=== PATIENT | male | born 1980 | race Caucasian/White ===

== ENCOUNTER 2018-04-10 21:09 | Emergency (ER) | payer BC ==
[~2018-04-10] VITALS: Ht 175.3 cm; Wt 105.9 kg
[2018-04-10 21:15] VITALS: Ht 175.3 cm; Wt 105.9 kg
[2018-04-10] MEDS ORDERED: VOLTAREN75 MG (21:16)
[2018-04-10] MEDS ORDERED: CLONAZEPAM2 MG/TAB (21:17)
[2018-04-10] MEDS ORDERED: REQUIP XL12 MG PO (21:17)
[2018-04-10] MEDS ORDERED: VITAMIN D250000 UNIT (21:18)
[2018-04-10] MEDS ORDERED: BACTRIM DS TABL1 TAB PO (23:40)
[2018-04-10] MEDS ORDERED: CLEOCIN HCL300 MG PO (23:40)
[2018-04-11 00:25] VITALS: BP 132/86
== END 2018-04-11 00:26 | disposition home or self-care (01) ==
LOC: D.ER 21:09
DX: L03.113 Cellulitis of right upper limb (principal); S60.561A Insect bite (nonvenomous) of right hand, initial encounter; W57.XXXA Bitten or stung by nonvenomous insect and other nonvenomous arthropods, initial encounter; Y93.89 Activity, other specified; Y92.019 Unspecified place in single-family (private) house as the place of occurrence of the external cause

== ENCOUNTER → 2019-01-05 13:48 | Outpatient (CLI) | payer BC ==
[2018-04-10 21:15] VITALS: BMI 34.5
[~2019-01-05 13:48] MED LIST: BACTRIM DS TABL1 TAB PO; CLEOCIN HCL300 MG PO; CLONAZEPAM2 MG/TAB; REQUIP XL12 MG PO; VITAMIN D250000 UNIT; VOLTAREN75 MG
== END | disposition home or self-care (01) ==
LOC: D.RAD 13:48
PROVIDERS: ATTEND Orthopaedic Surgery
DX: M25.851 Other specified joint disorders, right hip (principal)

== ENCOUNTER → 2019-04-07 13:06 | Outpatient (CLI) | payer BC ==
[2018-04-10 21:15] VITALS: BMI 34.5
== END | disposition home or self-care (01) ==
LOC: D.MRI 04-05 14:30
PROVIDERS: ATTEND Orthopaedic Surgery
DX: M25.551 Pain in right hip (principal)

== ENCOUNTER 2019-04-15 19:07 | Emergency (ER) | payer BC ==
[~2019-04-15] VITALS: Ht 175.3 cm; Wt 120.5 kg
[2019-04-15 19:10] VITALS: Ht 175.3 cm; Wt 120.5 kg
[2019-04-15 19:44] LABS: BASOPHILS 0.1 % (0-2); EOSINOPHILS 5.1 % (0-7); HEMATOCRIT 41.3 % (42.0-54.0); IMMATURE GRANULOCYTES 0.4 % (0-5); LYMPHOCYTES 21.1 % (15-50); MCH 31.6 pg (26.0-34.0); MCHC 36.3 g/dL (31.0-37.0); MCV 87.1 fL (80.0-100.0); MEAN PLATELET VOLUME 9.8 fL (7.4-10.4); MONOCYTES 9.9 % (2-11); NEUTROPHILS 63.4 % (40-80); RBC 4.74 10x6/uL (4.20-6.10); RDW 12.8 % (11.5-14.5); WBC 8.2 10x3/uL (4.8-10.8)
[2019-04-15 19:46] LABS: APPEARANCE CLEAR (CLEAR); BILIRUBIN NEGATIVE (NEGATIVE); COLOR YELLOW (YELLOW); GLUCOSE NEGATIVE (NEGATIVE); KETONE NEGATIVE (NEGATIVE); NITRITE NEGATIVE (NEGATIVE); PROTEIN TRACE mg/dL (NEGATIVE); UROBILINOGEN NORMAL (NORMAL)
[2019-04-15 19:47] LABS: BACTERIA FEW /hpf (NONE SEEN); EPITHELIAL CELLS 0-5 /hpf (0-5); RED CELLS - URINE 0-5 /hpf (0-5); WHITE CELLS - URINE OCC /hpf (0-5)
[2019-04-15 19:48] LABS: PLATELET COUNT 175 10x3/uL (130-400)
[2019-04-15] MEDS ORDERED: TYLENOL W/CODEI1 TAB PO (20:03)
[2019-04-15] MEDS ORDERED: FLOMAX0.4 MG PO (20:03)
[2019-04-15 20:04] LABS: ALBUMIN 3.4 g/dL (3.4-5.0); ANION GAP 14.6 mmol/L (8-16); BILIRUBIN - TOTAL 0.5 mg/dL (0.2-1.3); CALCIUM 8.9 mg/dL (8.5-10.1); CARBON DIOXIDE 24.3 mmol/L (21.0-32.0); CREATININE - SERUM 1.3 mg/dL (0.6-1.3); POTASSIUM - SERUM 3.9 mmol/L (3.5-5.1); PROTEIN - SERUM 6.9 g/dL (6.4-8.2)
[2019-04-15 21:00] VITALS: BP 128/86
== END 2019-04-15 20:57 | disposition home or self-care (01) ==
LOC: D.ER 19:07
PROVIDERS: Family Medicine
DX: N20.1 Calculus of ureter (principal)

== ENCOUNTER → 2019-05-24 13:43 | Outpatient (CLI) | payer BC ==
[2019-04-15 19:10] VITALS: BMI 39.2
[~2019-05-24 13:43] MED LIST changes: +FLOMAX0.4 MG PO; +TYLENOL W/CODEI1 TAB PO
== END | disposition home or self-care (01) ==
LOC: D.CT 13:43
PROVIDERS: ATTEND Family Medicine
DX: R93.89 Abnormal findings on diagnostic imaging of other specified body structures (principal)

== ENCOUNTER → 2019-06-10 08:09 | Outpatient (CLI) | payer BC ==
[2019-04-15 19:10] VITALS: BMI 39.2
--- NOTE | ~2019-06-10 | HEMODYNAMI ---
PATIENT:JUNE TAVARES MEDICAL RECORD: [id number] : 76 LOCATION:[facility] ADMISSION DATE: 06/10/19 Generatedon:06/10/20199:05 Patient name: JUNE TAVARES Patient #: [id number] SSN: : 1980 Date of study: 06/10/2019 Page: Of Hemodynamic Procedure Report Patient Data Patient Demographics Procedure consent was obtained First Name: JUNE Gender: Male Last Name: CHAITANYA : 1980 [facility] Initial: MOSES Age: 39 year(s) Patient #: [id number] Race: Unknown Additional ID: [id number] Contact details Address: [address] [place] [address] State: [place] City: [place] Zip code: [address] Past Medical History Allergies: No known allergies Admission Admission Data Admission Date: 06/10/2019 Admission Time: 8:09 Procedure Procedure Types Cath Procedure Peripheral Cath Diagnostic Procedure Miscellaneous Aspiration/Injection (Joint) Procedure Description Procedure Date Procedure Date: 06/10/2019 Procedure Start Time: 8:51 Procedure Staff Name Function James Vazquez MD Performing Physician Yefri Marroquin RT Monitor Lizzeth Espitia RN Nurse Procedure Data Cath Procedure Fluoroscopy Diagnostic fluoroscopy Total fluoroscopy Time: 1 time: 1 min min Diagnostic fluoroscopy Total fluoroscopy dose: 13 dose: 13 mGy mGy Hemodynamics Rest Pre Cath Intra NCS Post Cath Procedure Log Time Note 8:49:21 Yefri Marroquin RT (R) (CV) sent for patient. Start room use. 8:49:34 Time tracking: Regular hours (M-F 7:00 - 5:00) 8:49:45 Patient received from Outpatients to IR Alert and oriented. Tansferred to table in Supine position. 8:49:47 Signed procedure consent form obtained from patient. 8:49:49 Correct patient and procedure confirmed by team. 8:49:50 Full Disclosure recording started 8:49:51 8:49:51 Pre-procedure instructions explained to patient. 8:49:52 Pre-op teaching completed and patient verbalized understanding. 8:50:12 Patient allergic to No known allergies 8:50:14 Is patient on blood thinner?No 8:50:22 Right Hip was prepped with betadine and draped in sterile fashion. 8:51:27 Physician arrived 8:51:29 --------ALL STOP TIME OUT------ 8:51:30 Final Timeout: patient, procedure, and site verified with staff and physician. All members of the team are in agreement. 8:51:33 Right groin site verified by team. 8:51:39 Sedation plan: Local Anesthetic Medication:Lidocaine 8:51:49 Procedure started. 8:51:52 Local anesthetic to right groin with Lidocaine 1% by James Vazquez MD.INITIAL ACCESS ONLY 8:52:24 SAFE-T PLUS MYELOGRAM TRAY opened to sterile field. 9:02:27 Procedure ended.(Physican Out) 9:02:44 Fluoroscopy time 01.00 minutes. 9:02:46 Fluoroscopy dose: 13 mGy 9:02:46 Flurop Dose total: 13 9:05:23 BANDAIDE APPLIED SITE STABLE PT SENT HOME Device Usage Item Name Manufacture Quantity Catalog Hospital Part Current Minimal Lot# / Number Charge Number Stock Stock Serial# Code SAFE-T Care[employer]usion 1 [id number] PLUS MYELOGRAM TRAY Signature Audit [place] Stage Time Signature Unsigned Intra-Procedure 06/10/2019 Yefri 9:05:43 AM Cara RT (R) (CV) [facility] [address] [place] [address]
[~2019-06-10 08:09] MED LIST changes: +CARBIDOPA-LEVO1 EAC2 PO; +COLACE100 MG PO; +CYMBALTA60 MG PO; +HYDROCODON-ACE1 EA10 PO; +KLONOPIN1 MG PO; +LIORESAL 10 MG10 MG PO; +MULTI-DAY VITAM1 TAB PO; +ROPINIROLE HCL1 MG PO; +TOPROL XL50 MG PO; +VITAMIN C WIT1000 MG PO
[2019-06-23 08:45] VITALS: BMI 35.0
== END | disposition home or self-care (01) ==
LOC: D.RAD 08:09
PROVIDERS: ATTEND Nurse Practitioner Family
DX: M25.851 Other specified joint disorders, right hip (principal)

== ENCOUNTER → 2019-06-15 17:15 | Outpatient (CLI) | payer BC ==
[2019-04-15 19:10] VITALS: BMI 39.2
[2019-06-16 13:10] LABS: ANA REFLEX - DIRECT Negative (Negative)
[2019-06-17 11:10] LABS: ANGIOTENSIN CONVERTING ENZYME 51 U/L (14-82)
[2019-06-17 15:10] LABS: ANCA - ANTIMYELOPEROXIDASE <9.0 U/mL (0.0-9.0); ANCA - ANTIPROTEINASE 3 <3.5 U/mL (0.0-3.5); ANCA - ATYPICAL <1:20 titer (Neg:<1:20); ANCA - CYTOPLASMIC <1:20 titer (Neg:<1:20); ANCA - PERINUCLEAR <1:20 titer (Neg:<1:20)
[2019-06-19 17:08] LABS: FUNGAL - ASP FLAVUS Negative (Neg:<1:1); FUNGAL - ASP NIGER Negative (Neg:<1:1); FUNGAL - ASPER FUMIGATUS Negative (Neg:<1:1)
[2019-06-23 08:45] VITALS: BMI 35.0
== END | disposition home or self-care (01) ==
LOC: D.LABREF 17:15
PROVIDERS: ATTEND Internal Medicine Pulmonary Disease
DX: R91.8 Other nonspecific abnormal finding of lung field (principal)

== ENCOUNTER 2019-06-23 07:21 | Day surgery (SDC) | payer BC ==
[~2019-06-23] VITALS: Ht 175.3 cm; Wt 107.5 kg
[~2019-06-23 07:21] MED LIST changes: -CARBIDOPA-LEVO1 EAC2 PO; -COLACE100 MG PO; -CYMBALTA60 MG PO; -HYDROCODON-ACE1 EA10 PO; -KLONOPIN1 MG PO; -LIORESAL 10 MG10 MG PO; -MULTI-DAY VITAM1 TAB PO; -ROPINIROLE HCL1 MG PO; -TOPROL XL50 MG PO; -VITAMIN C WIT1000 MG PO
[2019-06-23 08:12] LABS: BASOPHILS 0.1 % (0-2); EOSINOPHILS 2.6 % (0-7); HEMATOCRIT 43.2 % (42.0-54.0); HEMOGLOBIN 15.2 g/dL (13.5-17.5); IMMATURE GRANULOCYTES 0.4 % (0-5); LYMPHOCYTES 17.4 % (15-50); MCH 31.7 pg (26.0-34.0); MCHC 35.2 g/dL (31.0-37.0); MCV 90.2 fL (80.0-100.0); MONOCYTES 6.8 % (2-11); NEUTROPHILS 72.7 % (40-80); PLATELET COUNT 191 10x3/uL (130-400); RBC 4.79 10x6/uL (4.20-6.10); RDW 13.4 % (11.5-14.5); WBC 9.6 10x3/uL (4.8-10.8)
[2019-06-23] MEDS ORDERED: KLONOPIN1 MG PO (08:28)
[2019-06-23] MEDS ORDERED: ROPINIROLE HCL1 MG PO (08:28)
[2019-06-23] MEDS ORDERED: CYMBALTA60 MG PO (08:28)
[2019-06-23] MEDS ORDERED: VITAMIN C WIT1000 MG PO (08:29)
[2019-06-23] MEDS ORDERED: MULTI-DAY VITAM1 TAB PO (08:30)
[2019-06-23] MEDS ORDERED: LIORESAL 10 MG10 MG PO (08:31)
[2019-06-23] MEDS ORDERED: TOPROL XL50 MG PO (08:32)
[2019-06-23] MEDS ORDERED: CARBIDOPA-LEVO1 EAC2 PO (08:33)
[2019-06-23] MEDS ORDERED: COLACE100 MG PO (08:34)
[2019-06-23 08:35] LABS: APTT 33.2 SECONDS (22.8-39.4); INR 0.96 (0.85-1.17); PROTIME 12.3 SECONDS (11.6-15.0)
[2019-06-23 08:36] LABS: APPEARANCE CLEAR (CLEAR); BILIRUBIN NEGATIVE (NEGATIVE); COLOR YELLOW (YELLOW); GLUCOSE NEGATIVE (NEGATIVE); KETONE SMALL mg/dL (NEGATIVE); NITRITE NEGATIVE (NEGATIVE); PROTEIN NEGATIVE (NEGATIVE); SPECIFIC GRAVITY 1.025 (1.005-1.020); UROBILINOGEN NORMAL (NORMAL)
[2019-06-23 08:38] LABS: ALBUMIN 3.5 g/dL (3.4-5.0); ALKALINE PHOSPHATASE 68 U/L (46-116); ALT (SGPT) 18 U/L (10-68); BILIRUBIN - TOTAL 0.65 mg/dL (0.2-1.3); CALC OSMOLALITY 284 mosm/kg (275-300); CALCIUM 8.8 mg/dL (8.5-10.1); CARBON DIOXIDE 30.4 mmol/L (21.0-32.0); CHLORIDE - SERUM 106 mmol/L (98-107); CREATININE - SERUM 1.1 mg/dL (0.6-1.3); GLUCOSE 97 mg/dL (74-106); POTASSIUM - SERUM 4.2 mmol/L (3.5-5.1); SODIUM 142 mmol/L (136-145); UREA NITROGEN 18 mg/dL (7-18); eGFR NON AFRICAN AMERICAN 78 mL/min (90-120)
[2019-06-23 08:45] VITALS: BP 117/77; Ht 175.3 cm; Wt 107.5 kg
[2019-06-23] MEDS ORDERED: HYDROCODON-ACE1 EA10 PO (14:33)
--- NOTE | 2019-06-23 15:53 | NUR ---
1435 DR FORD CALLED FOR ORDERS. ORDER GIVEN TO ADVANCE DIET. VOICE GETTING BETTER. HOARSENESS ON ARRIVAL TO OUT PT FACILITY. VS STABLE. 1535 IV REMOVED AND CATHETER INTACT AND PRESSURE APPLIED AND DRESSING. 1540 INSTRUCTIONS GIVEN
--- NOTE | 2019-06-28 10:34 | OP ---
PATIENT NAME: JUNE TAVARES MEDICAL RECORD: [id number] :[birth year] LOCATION:D.OPS ADMISSION DATE: SURGEON: FELIX FORD MD DATE OF OPERATION: 06/23/2019 SURGEON: Felix Ford MD ANESTHESIA: General, Dr. Stark. OPERATIONS PERFORMED: 1. Mediastinoscopy with mediastinal biopsies. 2. Flexible fiberoptic bronchoscopy with bronchioalveolar lavage. PREOPERATIVE DIAGNOSES: Mediastinal and hilar adenopathy. 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 INDICATION FOR OPERATION: Mediastinal adenopathy. FINDINGS OF THE OPERATION: Mediastinal adenopathy and multiple biopsies were taken. Frozen section demonstrated granulomatous disease. ESTIMATED BLOOD LOSS: Less than 3 cc. DESCRIPTION OF PROCEDURE: After informed consent, adequate preoperative medication evaluation, the patient was brought to the operating room, placed on the table in supine position. After induction of general endotracheal anesthesia and application of appropriate monitoring devices, the neck, chest prepped and draped in sterile field, utilizing Betadine scrub, alcohol, and Betadine solution. A Betadine-impregnated drape was also used. A small transverse incision was made above the sternal notch. Dissection carried down the fascia. Hemostasis maintained with electrocautery. The midline muscles were divided and dissection carried down into the pretracheal fascia. Utilizing sharp and blunt dissection, the scope was advanced to the mich and slowly withdrawn. An anterior lymph node present in itself in the field. This was aspirated and then biopsied multiple times. Biopsies were also taken, left paratracheal and right paratracheal nodes. Hemostasis was achieved. Wounds were irrigated. Instrument count and sponge counts were correct times 2. Wounds closed in layers utilizing 3-0 Vicryl on the platysma, 5-0 subcuticular Monocryl on the skin. Sterile dressings were applied. The patient then underwent flexible fiberoptic bronchoscopy. There were no endobronchial lesions noted. Bronchioalveolar lavage was performed in the right upper lobe. The scope was withdrawn. The patient tolerated the procedure well. The patient was awakened and transferred to the recovery room in satisfactory condition. TRANSINT:[id number] Voice Confirmation ID: [id number] DOCUMENT ID: [id number] OPERATIVE REPORT [id number] CHAITANYAJUNEFELIX HINKLE MD at 1034 CC: [id number] DICTATION DATE: 06/23/19 1307 PRINT JOURNALIST: 06/23/19 1335 DEP SDC 06/23/19 [facility] [address] [place] [id number]
== END 2019-06-23 15:50 | disposition home or self-care (01) ==
LOC: D.OPS 07:21
PROVIDERS: ATTEND Internal Medicine Cardiovascular Disease
DX: R59.0 Localized enlarged lymph nodes (principal)

== ENCOUNTER → 2020-01-20 17:00 | Outpatient (CLI) | payer BC ==
[2019-06-23 08:45] VITALS: BMI 35.0
[~2020-01-20 17:00] MED LIST changes: +CARBIDOPA-LEVO1 EAC2 PO; +COLACE100 MG PO; +CYMBALTA60 MG PO; +HYDROCODON-ACE1 EA10 PO; +KLONOPIN1 MG PO; +LIORESAL 10 MG10 MG PO; +MULTI-DAY VITAM1 TAB PO; +ROPINIROLE HCL1 MG PO; +TOPROL XL50 MG PO; +VITAMIN C WIT1000 MG PO
== END | disposition home or self-care (01) ==
LOC: D.LABREF 17:00
PROVIDERS: ATTEND Orthopaedic Surgery
DX: M25.561 Pain in right knee (principal)

== ENCOUNTER 2020-01-25 19:14 | Inpatient (IN) | payer BC ==
[~2020-01-25] VITALS: Ht 177.8 cm; Wt 109.1 kg
[2020-02-09 09:13] LABS: BASOPHILS 0.2 % (0-2); EOSINOPHILS 2.2 % (0-7); HEMATOCRIT 47.5 % (42.0-54.0); HEMOGLOBIN 16.3 g/dL (13.5-17.5); IMMATURE GRANULOCYTES 0.2 % (0-5); LYMPHOCYTES 21.2 % (15-50); MCHC 34.3 g/dL (31.0-37.0); MCV 90.5 fL (80.0-100.0); MEAN PLATELET VOLUME 9.9 fL (7.4-10.4); MONOCYTES 7.9 % (2-11); NEUTROPHILS 68.3 % (40-80); PLATELET COUNT 210 10x3/uL (130-400); RBC 5.25 10x6/uL (4.20-6.10); RDW 12.6 % (11.5-14.5)
[2020-02-09 09:23] LABS: ANION GAP 8.9 mmol/L (8-16); CALCIUM 8.6 mg/dL (8.5-10.1); CARBON DIOXIDE 28.4 mmol/L (21.0-32.0); CREATININE - SERUM 1.2 mg/dL (0.6-1.3); POTASSIUM - SERUM 4.3 mmol/L (3.5-5.1)
[2020-02-09 09:29] LABS: APTT 34.1 SECONDS (22.8-39.4); INR 0.92 (0.85-1.17); PROTIME 12.3 SECONDS (11.6-15.0)
[2020-02-09 09:40] LABS: BILIRUBIN NEGATIVE (NEGATIVE); GLUCOSE NEGATIVE (NEGATIVE); KETONE NEGATIVE (NEGATIVE); NITRITE NEGATIVE (NEGATIVE); UROBILINOGEN NORMAL (NORMAL)
[2020-02-15] VITALS (10 sets, daily range): BP systolic 111–129; BP diastolic 59–83; Ht 177.8 cm; Wt 109.1 kg
--- NOTE | 2020-02-15 08:36 | NUR ---
PT DID NOT TAKE HOME BETA RYLAN. SPOKE WITH DR QUINTANILLA ANESTHESIA STATES DUE TO HR OF 61 AND BP OF 121/80 WE WILL HOLD BETA RYLAN.
--- NOTE | 2020-02-15 10:50 | NUR ---
PLASMA BLADE USED ON SETTING 6/8. AQUAMANIS USED ON SETTING 170. CAUTERY PAD PLACED ON LEFT THIGH. LOT#[id number] EXP. 05/25/2021.
--- NOTE | 2020-02-15 12:21 | NUR ---
OPA IN AIRWAY ON ADMIT
--- NOTE | 2020-02-15 13:25 | NUR ---
PATIENT TO ROOM WITH IV INTACT. VS STABLE. NO COMPLAINTS OR SIGNS OF DISTRESS. FAMILY AT BEDSIDE. BSCDS ON AND WORKING. DRESSING TO RIGHT UPPER LEG CDI. CALL LIGHT WITHIN REACH.
--- NOTE | 2020-02-15 13:45 | NUR ---
PATIENT SATS DROPPING WHILE SLEEPING. O2 PLACED ON 2 LITERS. SATS 97-99 % NO COMPLAINTS\. CALL LIGHT WITHIN REACH.
--- NOTE | 2020-02-15 18:55 | NUR ---
PATIENT IN BED WITH IV INTACT. VS STABLE. TOLERATED REGULAR DIET. NO COMPLAINTS. TOOK O2 OFF. EXPLAINED OK TO LEAVE OFF BUT IF SATS DROP AGAIN WHILE SLEEPING WILL NEED BACK ON. VERBALIZED UNDERSTANDING. CALLVenice GREWAL WITHIN REACH.
[2020-02-16] VITALS: BP 103/56; BP 123/69
[2020-02-16 05:00] VITALS: BP 103/59
--- NOTE | 2020-02-16 06:30 | OP ---
PATIENT NAME: JUNE TAVARES MEDICAL RECORD: [id number] :[birth year] LOCATION:D.M3 D.1211 ADMISSION DATE:02/15/20 SURGEON: JAMES VALLE DO DATE OF OPERATION: 02/15/2020 PROCEDURE PERFORMED: Right total hip arthroplasty. 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 POSTOPERATIVE DIAGNOSIS: Right hip osteoarthritis and femoral acetabular impingement. INDICATIONS: Mr. Tavares is a 39-year-old male who has had right hip pain and left hip pain for quite some time. The right is worse than the left. He got an MRI and also the x-rays that showed a labral tear on his right hip. It also showed osteoarthritis and I sent him to a person who does hip scope to the labral repair. He said that due to the fact that he had such bad knee arthritis with it, he recommended hip replacement and he came back to me for hip replacement. We tried all manner of nonoperative treatment including injections and physical therapy to no avail. He got to the point where he could not deal with it and is affecting activities of daily living. He started dealing with it and wanted something done surgically. He is aware of the risks including infection, bleeding, damage to nerves and vessels, need for further surgery, blood clots, , loss of feeling in the anterolateral hip continued pain, fracture and he signed the consent. SURGEON: James Valle DO DESCRIPTION OF PROCEDURE: The patient was taken to the operative suite, laid in supine position, given general anesthetic and intubated. He was given 2 grams Ancef, 80 mg of gentamicin, a gram of TXA. He was then moved over to the Morrow table and the right hip was prepped and draped in sterile fashion after his position, the hip was prepped and draped in sterile fashion. A time-out was performed. Everyone was agreeance with correct side, site, patient, the procedure. I then began by making an incision over tensor fascia rajinder muscle. With careful dissection made down to the muscle, taking the fascia anteriorly and the muscle belly posteriorly, opened up the rectus interval. The rectus interval was then opened. The rectus was taken medially and the tensor fascia rajinder laterally. After that was completed, the ascending branch of lateral femoral circumflex was encountered and once it was encountered, it was tied off and coagulated with the Aquamantys. I then opened up the capsule and tagged it and made a femoral neck cut and the head was removed. The labrum was removed as well as the pulvinar. I then began reaming up to 52, then medialize it a little bit more and reamed back up to a 52 and impacted in the 52 cup, it fit very well. The liner was then impacted in and the femur was then exposed after doing some releases and starting with the canal finder cookie cutter and then broaching up to an 11, 11 fit well. We then trialled a -6 and then went to a standard, standard fit very well with equal lengths. We then removed the trials and irrigated thoroughly and then placed the actual stem in with a standard head. The dual mobility head was then impacted on and the hip was reduced. On x-rays, there was no fracture seen. The femoral stem fit very well and there was equal length to the left and right hips. I had good motion and very stable. I then irrigated with 10% povidone iodine and 500 mL of normal saline solution and let it set for 3 minutes. It was then irrigated out with 1 liter of normal OPERATIVE REPORT [id number] JUNE TAVARES saline. Porter powder and vancomycin powder were then placed in the wound. The fascia was then closed with [id number] #1 Vicryl and then a running locking stitch of #1 Vicryl. Dileep Allan, certified medical technician, closed the skin with 2-0 Vicryl inverted interrupted fashion, 4-0 Monocryl running on the skin or Prineo glue placed on the skin. It was then dressed with Telfa and Tegaderm. He was awakened and taken to recovery in stable condition. Blood loss approximately 250 mL. COMPLICATIONS: None. TRANSINT:[id number] Voice Confirmation ID: [id number] DOCUMENT ID: [id number] JAMES VALLE DO at 0630 CC: [id number] DICTATION DATE: 02/15/20 1217 CLUB LICENSEE: 02/15/20 2155 ADM IN [facility] [address] [place] [address]
[2020-02-16 07:04] LABS: HEMOGLOBIN 13.8 g/dL (13.5-17.5); MCH 30.7 pg (26.0-34.0); MCHC 33.7 g/dL (31.0-37.0); MCV 91.1 fL (80.0-100.0); MEAN PLATELET VOLUME 9.7 fL (7.4-10.4); RBC 4.5 10x6/uL (4.20-6.10); RDW 12.7 % (11.5-14.5)
--- NOTE | 2020-02-16 12:45 | NUR ---
PATIENT SITTING UP IN CHAIR. DID WELL AMBULATING WITH PT. NO COMPLAINTS OR SIGNS OF DISTRESS. CALL LIGHT WITHIN REACH.
[2020-02-16 13:35] VITALS: BP 125/70
--- NOTE | 2020-02-16 16:36 | MORECARE ---
CASE MANAGEMENT DISCHARGE SUMMARY PATIENT: JUNE TAVARES UNIT: [id number] ADM DATE: 02/15/20 AGE: 39 : [birth year] SEX: M ROOM/BED: D.1211 AUTHOR: MARY WONG PHYSICIAN: REFERRING PHYSICIAN: MIGDALIA VALLE DO DATE OF SERVICE: 02/16/20 Discharge Plan Patient Name: JUNE TAVARES [facility] : 1980 Planned Disposition: Home Anticipated Discharge Date: Discharge Date: Expected LOS: Initial Reviewer: [email or web address] Initial Review Date: 02/15/2020 Generated: 02/16/20 5:36 pm DCPIA - Discharge Planning Initial Assessment Updated by [email or web address]: Mamta Dykes on 02/16/20 4:33 pm * Is the patient Alert and Oriented? Yes * How many steps to enter\exit or inside your home? 0 * PCP [facility] * [facility] * Preadmission Environment Home with Family * ADLs Independent * Equipment Walker * List name and contact numbers for known caregivers / representatives who currently or will assist patient after discharge: melany [facility]- [phone] * Verbal permission to speak to the caregivers and representatives has been obtained from the patient. Yes * Community resources currently utilized None * Additional services required to return to the preadmission environment? Yes * Can the patient safely return to the preadmission environment? No * Has this patient been hospitalized within the prior 30 days at any hospital? No Patient Name: JUNE TAVARES Page [id number] at 1636 All edits/amendments must be made on the electronic document DICTATION DATE: 02/16/20 1636 LINE DEPARTMENT SUPERVISOR: MELANY 02/16/20 1636 RPT#: [id number] DC DATE: STATUS: ADM IN [facility] [address] [place] [address] END OF REPORT
--- NOTE | 2020-02-16 16:45 | MORECARE ---
CASE MANAGEMENT DISCHARGE SUMMARY PATIENT: JUNE TAVARES UNIT: [id number] ADM DATE: 02/15/20 AGE: 39 : [birth year] SEX: M ROOM/BED: D.1211 AUTHOR: JUDITH,DOC PHYSICIAN: REFERRING PHYSICIAN: MIGDALIA VALLE DO DATE OF SERVICE: 02/16/20 Discharge Plan Patient Name: JUNE TAVARES Facility: [facility]:[place] : 1980 Planned Disposition: Home Anticipated Discharge Date: Discharge Date: Expected LOS: Initial Reviewer: [email or web address] Initial Review Date: 02/15/2020 Generated: 02/16/20 5:44 pm Comments DCP- Discharge Planning Updated by [email or web address]: Mamta Dykes on 02/16/20 3:[address] Patient Name: JUNE TAVARES Admission Status: Elective Accout number: [id number] Admission Date: 02-15-2020 : 1980 Admission Diagnosis: Attending: MIGDALIA VALLE Current LOS: 1 Anticipated DC Date: Planned Disposition: Home Primary Insurance: [employer]IFE Discharge Planning Comments: CM met with patient to complete initial dc planning assessment. CM educated patient on the CM role and verbal consent given by patient to complete assessment. CM verified patient's address, phone number, and emergency contact phone numbers. Patient lives at home with his , Melany, who is currently at bedside. At discharge patient plans to return home and feels this is a safe discharge. CM discussed availability of home health, rehab services, and medical equipment. Patient states he has a rolling walker at home, and would benefit from OP therapy. KRISTAN signed for OP rehab at [facility]. Patient denies other discharge needs at this time. Transportation provider at discharge will be his . CM will continue to follow and will assist as needed with dc plans/needs. Manager Agricultural: Mamta Dykes MSN,RN,CM DCPIA - Discharge Planning Initial Assessment Updated by [email or web address]: Mamta Dykes on 02/16/20 4:33 pm * Is the patient Alert and Oriented? Yes * How many steps to enter\exit or inside your home? 0 * PCP [facility] * [facility] * Preadmission Environment Home with Family * ADLs Independent * Equipment Walker * List name and contact numbers for known caregivers / representatives who currently or will assist patient after discharge: melany macias- [phone] * Verbal permission to speak to the caregivers and representatives has been obtained from the patient. Yes * Community resources currently utilized None * Additional services required to return to the preadmission environment? Yes * Can the patient safely return to the preadmission environment? No * Has this patient been hospitalized within the prior 30 days at any hospital? No Last DP export: 02/16/20 3:36 p Patient Name: JUNE TAVARES Page [id number] at 1645 All edits/amendments must be made on the electronic document DICTATION DATE: 02/16/201643 SED SPECIAL EDUCATION TEACHER: MELANY 02/16/201643 RPT#: [id number] DC DATE: STATUS: ADM IN [facility] [address] [place] [address] END OF REPORT
[2020-02-16] MEDS ORDERED: ELIQUIS2.5 MG PO (17:23)
[2020-02-16] MEDS ORDERED: oxyCODONE IR PO (17:23)
[2020-02-16] MEDS ORDERED: VISTARIL50 MG PO (17:24)
[2020-02-16] MEDS ORDERED: KEFLEX500 MG PO (17:24)
--- NOTE | 2020-02-16 18:50 | NUR ---
PATIENT RECIEVED DC INSTRUCTIONS AND PRESCRIPTIONS. VERBALIZED UNDERSTANDING. NO QUESTIONS AT THIS TIME. DRESSING TO RIGHT THIGH CHANGED PER DR. VALLE. INCISION CLEAN AND DRY. DERMABOND INTACT. IV REMOVED WITH CATH TIP INTACT. ESCORTED PATIENT TO PRIVATE VEHICLE WITH PERSONAL BELONGINGS VIA .
--- NOTE | 2020-02-17 09:06 | MORECARE ---
CASE MANAGEMENT DISCHARGE SUMMARY PATIENT: JUNE TAVARES UNIT: [id number] ADM DATE: 02/15/20 AGE: 39 : 76 SEX: M ROOM/BED: D.1211 AUTHOR: MARY WONG PHYSICIAN: REFERRING PHYSICIAN: MIGDALIA VALLE DO DATE OF SERVICE: 02/17/20 Discharge Plan Patient Name: JUNE TAVARES Facility: [facility]:[place] : 1980 Planned Disposition: Home Anticipated Discharge Date: Discharge Date: 02/16/2020 Expected LOS: Initial Reviewer: [email or web address] Initial Review Date: 02/15/2020 Generated: 02/17/20 10:05 am Comments DCP- Discharge Planning Updated by [email or web address]: Mamta Dykes on 02/16/20 3:[address] Patient Name: JUNE TAVARES Admission Status: Elective Accout number: [id number] Admission Date: 02-15-2020 : 1980 Admission Diagnosis: Attending: MIGDALIA VALLE Current LOS: 1 Anticipated DC Date: Planned Disposition: Home Primary Insurance: [employer]NLIFE Discharge Planning Comments: CM met with patient to complete initial dc planning assessment. CM educated patient on the CM role and verbal consent given by patient to complete assessment. CM verified patient's address, phone number, and emergency contact phone numbers. Patient lives at home with his , Melany, who is currently at bedside. At discharge patient plans to return home and feels this is a safe discharge. CM discussed availability of home health, rehab services, and medical equipment. Patient states he has a rolling walker at home, and would benefit from OP therapy. KRISTAN signed for OP rehab at [facility]. Patient denies other discharge needs at this time. Transportation provider at discharge will be his . CM will continue to follow and will assist as needed with dc plans/needs. Glass Calibrator: Mamta Dykes MSN,RN,CM DCPIA - Discharge Planning Initial Assessment Updated by [email or web address]: Mamta Dykes on 02/16/20 4:33 pm * Is the patient Alert and Oriented? Yes * How many steps to enter\exit or inside your home? 0 * PCP [facility] * [facility] * Preadmission Environment Home with Family * ADLs Independent * Equipment Walker * List name and contact numbers for known caregivers / representatives who currently or will assist patient after discharge: melany macias- [phone] * Verbal permission to speak to the caregivers and representatives has been obtained from the patient. Yes * Community resources currently utilized None * Additional services required to return to the preadmission environment? Yes * Can the patient safely return to the preadmission environment? No * Has this patient been hospitalized within the prior 30 days at any hospital? No Last DP export: 02/16/20 3:45 p Patient Name: JUNE TAVARES Page [id number] at 0906 All edits/amendments must be made on the electronic document DICTATION DATE: 02/17/20904 SPECIALTY SALES CONSULTANT: MELANY 02/17/20904 RPT#: [id number] DC DATE:02/16/20 STATUS: DIS IN [facility] [address] [place] [address] END OF REPORT
== END 2020-02-16 19:50 | disposition home or self-care (01) | DRG 470 ==
LOC: D.SDCHOLD 02-09 10:00 → D.M3 02-15 08:08 → D.SDCHOLD 02-15 08:08 → D.M3 02-15 12:27
PROVIDERS: ADMIT Orthopaedic Surgery; ATTEND Orthopaedic Surgery
PROC: 0SR90JZ Replacement of Right Hip Joint with Synthetic Substitute, Open Approach (ICD-10-PCS; principal; 2020-02-15 10:30)
DX: M16.11 Unilateral primary osteoarthritis, right hip (principal); M25.851 Other specified joint disorders, right hip; I10 Essential (primary) hypertension; D64.9 Anemia, unspecified; G25.81 Restless legs syndrome; G89.29 Other chronic pain; M54.9 Dorsalgia, unspecified; F41.9 Anxiety disorder, unspecified; Z87.891 Personal history of nicotine dependence

== ENCOUNTER → 2020-04-10 19:10 | Outpatient (CLI) | payer BC ==
[2020-02-15 15:25] VITALS: BMI 34.5
[~2020-04-10 19:10] MED LIST changes: +ELIQUIS2.5 MG PO; +KEFLEX500 MG PO; +VISTARIL50 MG PO; +oxyCODONE IR PO
== END | disposition home or self-care (01) ==
LOC: D.LABREF 19:10
PROVIDERS: ATTEND Orthopaedic Surgery
DX: M16.12 Unilateral primary osteoarthritis, left hip (principal)

== ENCOUNTER 2021-02-16 10:31 | Emergency (ER) | payer BC ==
[~2021-02-16] VITALS: Ht 177.8 cm; Wt 116.4 kg
[2021-02-16 10:32] VITALS: BP 119/80; Ht 177.8 cm; Wt 116.4 kg
== END 2021-02-16 13:41 | disposition home or self-care (01) ==
LOC: D.ER 10:31
DX: R42 Dizziness and giddiness (principal); R93.0 Abnormal findings on diagnostic imaging of skull and head, not elsewhere classified; H93.19 Tinnitus, unspecified ear; I10 Essential (primary) hypertension